=== PATIENT | female | born 1960 | race Caucasian/White ===

== ENCOUNTER 2019-07-27 07:13 | Day surgery (SDC) | payer MEDICARE, OTHER ==
[~2019-07-27] VITALS: Ht 162.6 cm; Wt 109.2 kg
[~2019-07-27 07:13] MED LIST: BETAMETHASONE TP; CALCIPOTRIENE TP; CALCIUM 600600 MG PO; CANASA 1000MG1000 MG RC; CARAFATE 1GM1 G PO; DELZICOL PO; FLAXSEED PO; FOLIC ACID 11 MG/TA1 PO; GLUCOSAMINE & C1 CA1 PO; MAGNESIUM250 M1 PO; METHOTREX PO; MICROZIDE12.5 MG PO; MULTI VITAMINS1 TAB PO; PREDNISONE 5MG5 MG PO; PRIL40 PO; ULTRAM 50MG TAB50 MG PO; [UNRECOGNIZED DRUG - OTHER]
[2019-07-27 07:44] VITALS: BP 135/86; PULSE 81; TEMP 97.6
[2019-07-27] MEDS ORDERED: NORVASC 5MG5 MG/TAB PO (08:06)
[2019-07-27] MEDS ORDERED: VITAMIN D31000 I1 PO (08:07)
[2019-07-27] MEDS ORDERED: VITAMIN D 400400 IU PO (08:07)
[2019-07-27] MEDS ORDERED: OMEGA-3 1000 MG1 CAP PO (08:08)
[2019-07-27] MEDS ORDERED: NEURONTIN100 MG/CAP PO (08:09)
[2019-07-27] MEDS ORDERED: CALCIUM CITRATE1 TA4 PO (08:09)
[2019-07-27] MEDS ORDERED: LIPITOR20 MG PO (08:10)
[2019-07-27] MEDS ORDERED: ARAVA 20MG TABL20 MG PO (08:10)
[2019-07-27] MEDS ORDERED: LEXAPRO 10MG10 MG PO (08:10)
[2019-07-27] MEDS ORDERED: TEMOVATE50TS TOP (08:11)
[2019-07-27 09:40] VITALS: BP 136/91; PULSE 75; TEMP 97.8
--- NOTE | 2019-07-27 09:40 | NUR ---
Patient brought to [facility] via cart. Ambulated to chair without difficulty. Placed on monitors, vital signs stable. at bedside. Report recieved from Lamonte RN. States she would just like a water at this time. Will continue to monitor.
[2019-07-27 09:55] VITALS: BP 140/89; PULSE 75
--- NOTE | 2019-07-27 09:55 | NUR ---
Patient tolerating drink without difficulty. Does not want anything to eat at this time. Vital signs stable. Dr. Waterman at bedside to discuss results. Discussed at length about clip in colon. Packet given to pt.
[2019-07-27 10:10] VITALS: BP 142/99; PULSE 68
--- NOTE | 2019-07-27 10:10 | NUR ---
Patient states she feels ready to go home. Vital signs stable. IV removed. Pt to get dressed at this time.
--- NOTE | 2019-07-27 10:22 | NUR ---
Discharge instructions reviewed with patient and . All questions answered. Pt wheeled down to lobby. To be driven home by .
== END 2019-07-27 10:22 | disposition home or self-care (01) ==
LOC: SDCO 07:13
DX: D12.3 Benign neoplasm of transverse colon (principal); D12.0 Benign neoplasm of cecum; D64.9 Anemia, unspecified; K57.30 Diverticulosis of large intestine without perforation or abscess without bleeding; K51.911 Ulcerative colitis, unspecified with rectal bleeding; I10 Essential (primary) hypertension; K21.9 Gastro-esophageal reflux disease without esophagitis; M19.90 Unspecified osteoarthritis, unspecified site; Z88.5 Allergy status to narcotic agent; Z88.1 Allergy status to other antibiotic agents; Z88.8 Allergy status to other drugs, medicaments and biological substances; Z90.49 Acquired absence of other specified parts of digestive tract; K22.2 Esophageal obstruction; K92.1 Melena; E66.9 Obesity, unspecified
CPT/HCPCS: J2704

== ENCOUNTER 2021-08-23 07:17 | Day surgery (SDC) | payer MEDICARE, OTHER ==
[~2021-08-23] VITALS: Ht 162.6 cm; Wt 122.0 kg
[~2021-08-23 07:17] MED LIST changes: +ARAVA 20MG TABL20 MG PO; +CALCIUM CITRATE1 TA4 PO; +LEXAPRO 10MG10 MG PO; +LIPITOR20 MG PO; +NEURONTIN100 MG/CAP PO; +NORVASC 5MG5 MG/TAB PO; +OMEGA-3 1000 MG1 CAP PO; +TEMOVATE50TS TOP; +VITAMIN D 400400 IU PO; +VITAMIN D31000 I1 PO
--- NOTE | 2021-08-23 07:30 | NUR ---
60 year old patient admitted to [facility] via ambulation. Patient is alert and oriented. Procedure verified and consent signed. First and last name + verified with the patient. Patient states desire to be DNR and has Advanced Directives at home. Patient was explained the part of the consent that pertains to patients with a current DNR status. Patient verbalized understanding and signed the consent. Physical assessment completed. Medications and HX reviewed at this time. Patient changed into a clean gown and used the bathroom prior to changing. Call reardon is at bedside. Non-slip socks are on.
[2021-08-23] MEDS ORDERED: STELARA45 MG/0.1 SQ (07:45)
[2021-08-23 07:54] VITALS: BP 137/85; PULSE 71; TEMP 97.2
[2021-08-23 08:40] VITALS: BP 142/82; PULSE 72
--- NOTE | 2021-08-23 08:40 | NUR ---
Patient arrive back into [facility]. Patient's at bedside. Report received from EDNA Paredes. Denies pain and nausea. Requesting coffee and erwin crackers.
--- NOTE | 2021-08-23 08:45 | NUR ---
Patient reports still doing well. No complaint of pain or nausea. Requesting additional coffee and erwin crackers. 0900: Patient got dressed independently. 0912: MD in to see patient. 0915: IV removed with no complications. Went through discharge instructions with patient. Questions answered. Patient verbalized understanding to discharge instructions. 0920: Patient escorted to patient entrance via wheelchair and met at entrance. Patient got into personal vehicle independently and left in the care of her .
[2021-08-23 08:55] VITALS: BP 120/90; PULSE 73; TEMP 97.1
[2021-08-23 09:10] VITALS: BP 136/77; PULSE 77
== END 2021-08-23 09:20 | disposition home or self-care (01) ==
LOC: SDCO 07:17
DX: K51.90 Ulcerative colitis, unspecified, without complications (principal); K63.5 Polyp of colon; K57.30 Diverticulosis of large intestine without perforation or abscess without bleeding; R19.7 Diarrhea, unspecified; K21.9 Gastro-esophageal reflux disease without esophagitis; K76.0 Fatty (change of) liver, not elsewhere classified; I10 Essential (primary) hypertension; E66.9 Obesity, unspecified; L40.50 Arthropathic psoriasis, unspecified; D64.9 Anemia, unspecified; Z68.42 Body mass index [BMI] 45.0-49.9, adult; Z87.891 Personal history of nicotine dependence; Z79.899 Other long term (current) drug therapy
CPT/HCPCS: J2704; J7120

== ENCOUNTER → 2024-02-18 | Day surgery (SDC) | payer MEDICARE, OTHER ==
[~2024-02-18] VITALS: Ht 162.6 cm; Wt 123.0 kg
[~2024-02-18] MED LIST changes: +ATROVENT I0.2 MG/1 M IH; +CLARITIN 1010 MG/TAB PO; +HYDROmorphone 1 MG/1 ML SYRINGE [PACU/SDC ONLY] IV PRN; +LR 1,000 ML IV ONE; +Lidocaine PF 2% (20 MG/ML) 5 ML VIAL ONE; +MOBIC15 MG PO; +OMEGA-3 FISH1000 MG PO; +Ondansetron 4 MG/2 ML VIAL IV PRN; +Ondansetron 4 MG/2 ML VIAL ONE; +PROAIR DIGIHAL90 MCG IH; +Rocuronium 50 MG/5 ML Multi-Dose VIAL ONE; +STELARA45 MG/0.1 SQ; +Succinylcholine PF 200 MG/10 ML SYRINGE IV ONE; +VOLTAREN GEL 1%1 TU TP; +dexAMETHasone 10 MG/ML VIAL ONE; +fentaNYL 50 MCG/ML 1 ML SYRINGE/VIAL [PACU/SDC ONLY] IV PRN; +fentaNYL 50 MCG/ML 2 ML VIAL ONE; +hydrALAZINE 20 MG/ML 1 ML VIAL IV PRN
[2024-02-19 00:15] VITALS: TEMP 98.3
[2024-02-19 01:31] VITALS: BP 118/71; PULSE 67
== END ==
LOC: COL.ER 21:53
DX: T18.128A Food in esophagus causing other injury, initial encounter (principal); K22.2 Esophageal obstruction; M79.89 Other specified soft tissue disorders; K29.00 Acute gastritis without bleeding; G47.30 Sleep apnea, unspecified; G47.33 Obstructive sleep apnea (adult) (pediatric); E66.01 Morbid (severe) obesity due to excess calories; Z68.42 Body mass index [BMI] 45.0-49.9, adult; Z87.891 Personal history of nicotine dependence; Z89.421 Acquired absence of other right toe(s)
CPT/HCPCS: J1100; J2405; J2704; J3010; J7120

== ENCOUNTER 2024-03-04 12:53 | Day surgery (SDC) | payer MEDICARE, OTHER ==
[~2024-03-04] VITALS: Ht 162.6 cm; Wt 132.9 kg
[~2024-03-04 12:53] MED LIST changes: -HYDROmorphone 1 MG/1 ML SYRINGE [PACU/SDC ONLY] IV PRN; -LR 1,000 ML IV ONE; +LR 1,000 ML IV SCH; -Lidocaine PF 2% (20 MG/ML) 5 ML VIAL ONE; -Ondansetron 4 MG/2 ML VIAL ONE; -Rocuronium 50 MG/5 ML Multi-Dose VIAL ONE; -Succinylcholine PF 200 MG/10 ML SYRINGE IV ONE; -dexAMETHasone 10 MG/ML VIAL ONE; -fentaNYL 50 MCG/ML 1 ML SYRINGE/VIAL [PACU/SDC ONLY] IV PRN; -fentaNYL 50 MCG/ML 2 ML VIAL ONE; -hydrALAZINE 20 MG/ML 1 ML VIAL IV PRN
[2024-03-04] MEDS ORDERED: Lidocaine PF 2% (20 MG/ML) 5 ML VIAL ONE (13:41)
[2024-03-04 14:06] VITALS: BP 133/83; PULSE 67; TEMP 96.8
[2024-03-04 14:10] VITALS: BP 121/74; PULSE 67
[2024-03-04 15:49] VITALS: BP 133/67; PULSE 70; TEMP 97.8
[2024-03-04] MEDS ORDERED: ASPIRIN E.C. 8181 MG PO (15:56)
[2024-03-04] MEDS ORDERED: ZETIA 10MG TAB10 MG PO (15:56)
[2024-03-04] MEDS ORDERED: IRON TABLETS325 MG PO (15:57)
[2024-03-04] MEDS ORDERED: LASIX 40MG TABL40 MG PO (15:57)
[2024-03-04] MEDS ORDERED: GLUCOPHAGE500 MG/TAB PO (15:58)
[2024-03-04] MEDS ORDERED: RYBELSUS3 MG PO (15:59)
--- NOTE | 2024-03-04 17:02 | NUR ---
1406- PT RETURNS FROM ENDO PROCEDURE VIA CART AND RN ASSIST TO GI B[facility] 6. PT AMBULATES FROM CART TO RECLINER WITH ASSIST. MONITORS ON AND ALARMS SET. CALL LIGHT WITHIN REACH. REPORT RECEIVED FROM EDNA LAWSON. PT ALERT AND ORIENTED. PT REQUESTS FOOD AND DRINK. PT DENIES ANY PAIN OR NAUSEA. 1410- PT TAKING FOOD AND LDRINK WELL. NO COMPLICATIONS NOTED. 1430- DISCHARGE INSTRUCTIONS GIVEN TO PT. ALL QUESTIONS ANSWERED. 1445- PT TRANSFERRED OUT OF THE HOSPITAL VIA WHEELCHAIR TAKEN OUT BY AID.
== END 2024-03-04 14:45 | disposition home or self-care (01) ==
LOC: SDCO 12:53
DX: K21.9 Gastro-esophageal reflux disease without esophagitis (principal); K22.2 Esophageal obstruction; E66.01 Morbid (severe) obesity due to excess calories; Z68.43 Body mass index [BMI] 50.0-59.9, adult; Z89.422 Acquired absence of other left toe(s); G47.33 Obstructive sleep apnea (adult) (pediatric)
CPT/HCPCS: C1726; J2704; J7120